=== PATIENT | male | born 1985 ===

== ENCOUNTER 2018-07-18 18:31 | Emergency (ER) | payer OTHER ==
[2018-07-18 18:40] VITALS: TEMP 99; BMI 28.1
--- NOTE | 2018-07-18 19:10 | PDOC ---
History of Present Illness - General Chief Complaint: Blood Pressure Problem Stated Complaint: HEADACHE/DIZZINESS/BP PROBLEM Time Seen by Provider: 07/18/18 19:10 Past History - Past Medical History Allergies/Adverse Reactions: Allergies Allergy/AdvReac Type Severity Reaction Status Date / Time No Known Allergies Allergy Verified 07/18/18 18:40 COPD: No - Suicide/Smoking/Psychosocial Hx Smoking History: Never smoked *Physical Exam - Vital Signs Last Vital Signs Temp Pulse Resp BP Pulse Ox 99.0 F 74 18 162/104 H 99 07/18/18 18:37 07/18/18 18:37 07/18/18 18:37 07/18/18 18:37 07/18/18 18:37 Moderate Sedation - Procedure Monitoring Vital Signs: Procedure Monitoring Vital Signs Temperature 99.0 F 07/18/18 18:37 Pulse Rate 74 07/18/18 18:37 Respiratory Rate 18 07/18/18 18:37 Blood Pressure 162/104 H 07/18/18 18:37 O2 Sat by Pulse Oximetry (%) 99 07/18/18 18:37
[2018-07-18] MEDS ORDERED: NITROGLYCERIN SUBLINGUAL 1/150 0.4 MG TAB SL ONE (19:47)
--- NOTE | 2018-07-18 19:49 | PDOC ---
History of Present Illness - General History Source: Patient Exam Limitations: No Limitations - History of Present Illness Initial Comments: 07/18/18 20:33 The patient is a 33 year old male, with no significant past medical history, who presents to the emergency department with substernal chest pain and associated headache beginning this morning upon waking up. The patient states the substernal chest pain is non radiating, described as a tightness, rated 10/ 10, worse with exertion. The patient states he went to Urgent Care who noted the patients blood pressure was elevated to 160 and sent him to the ED for further evaluation. The patient states he had a similar episode of chest pain and elevated blood pressure (systolic of 170s) 2 weeks ago where he visited his PCP and was told to continue weight loss and diet to help control his blood pressure. The patient denies palpitations, shortness of breath and dizziness. Denies fever, chills, nausea, vomit, diarrhea and constipation. Denies dysuria, frequency, urgency and hematuria. Allergies: NKA <Wesley Ross - Last Filed: 07/18/18 21:45> <Lexy Dumont - Last Filed: 07/18/18 23:32> - General Chief Complaint: Blood Pressure Problem Stated Complaint: HEADACHE/DIZZINESS/BP PROBLEM Time Seen by Provider: 07/18/18 19:10 Past History <Wesley Ross - Last Filed: 07/18/18 21:45> - Past Medical History COPD: No - Suicide/Smoking/Psychosocial Hx Smoking History: Never smoked <Lexy Dumont - Last Filed: 07/18/18 23:32> - Past Medical History Allergies/Adverse Reactions: Allergies Allergy/AdvReac Type Severity Reaction Status Date / Time No Known Allergies Allergy Verified 07/18/18 18:40 Home Medications: Ambulatory Orders Hydrochlorothiazide [Hctz -] 25 mg PO DAILY #30 tablet 07/18/18 Review of Systems - Review of Systems Comments:: 07/18/18 20:33 GENERAL/CONSTITUTIONAL: No fever or chills. No weakness. HEAD, EYES, EARS, NOSE AND THROAT: No change in vision. No ear pain or discharge. No sore throat. CARDIOVASCULAR: (+) Chest pain. No shortness of breath. RESPIRATORY: No cough, wheezing, or hemoptysis. GASTROINTESTINAL: No nausea, vomiting, diarrhea or constipation. GENITOURINARY: No dysuria, frequency, or change in urination. MUSCULOSKELETAL: No joint or muscle swelling or pain. No neck or back pain. SKIN: No rash NEUROLOGIC: (+) Headache. No vertigo, loss of consciousness, or change in strength/sensation. ENDOCRINE: No increased thirst. No abnormal weight change. HEMATOLOGIC/LYMPHATIC: No anemia, easy bleeding, or history of blood clots. ALLERGIC/IMMUNOLOGIC: No hives or skin allergy. <Wesley Ross - Last Filed: 07/18/18 21:45> *Physical Exam - Vital Signs Last Vital Signs Temp Pulse Resp BP Pulse Ox 99.0 F 74 18 162/104 H 99 07/18/18 18:37 07/18/18 18:37 07/18/18 18:37 07/18/18 18:37 07/18/18 18:37 - Physical Exam Comments: 07/18/18 21:45 GENERAL: Awake, alert, and fully oriented, in no acute distress HEAD: No signs of trauma EYES: PERRLA, EOMI, sclera anicteric, conjunctiva clear ENT: Auricles normal inspection, hearing grossly normal, nares patent, oropharynx clear without exudates. Moist mucosa NECK: Normal ROM, supple, no lymphadenopathy, JVD, or masses LUNGS: Breath sounds equal, clear to auscultation bilaterally. No wheezes, and no crackles HEART: Regular rate and rhythm, normal S1 and S2, no murmurs, rubs or gallops ABDOMEN: Soft, nontender, normoactive bowel sounds. No guarding, no rebound. No masses EXTREMITIES: Normal range of motion, no edema. No clubbing or cyanosis. No cords, erythema, or tenderness NEUROLOGICAL: Cranial nerves II through XII grossly intact. Normal speech, normal gait SKIN: Warm, Dry, normal turgor, no rashes or lesions noted. <Wesley Ross - Last Filed: 07/18/18 21:45> - Vital Signs Last Vital Signs Temp Pulse Resp BP Pulse Ox 99.0 F 74 18 162/104 H 99 07/18/18 18:37 07/18/18 18:37 07/18/18 18:37 07/18/18 18:37 07/18/18 18:37 <Lexy Dumont - Last Filed: 07/18/18 23:32> Moderate Sedation - Procedure Monitoring Vital Signs: Procedure Monitoring Vital Signs Temperature 99.0 F 07/18/18 18:37 Pulse Rate 74 07/18/18 18:37 Respiratory Rate 18 07/18/18 18:37 Blood Pressure 162/104 H 07/18/18 18:37 O2 Sat by Pulse Oximetry (%) 99 07/18/18 18:37 <Wesley Ross - Last Filed: 07/18/18 21:45> - Procedure Monitoring Vital Signs: Procedure Monitoring Vital Signs Temperature 99.0 F 07/18/18 18:37 Pulse Rate 74 07/18/18 18:37 Respiratory Rate 18 07/18/18 18:37 Blood Pressure 162/104 H 07/18/18 18:37 O2 Sat by Pulse Oximetry (%) 99 07/18/18 18:37 <Lexy Dumont - Last Filed: 07/18/18 23:32> ED Treatment Course - LABORATORY CBC & Chemistry Diagram: 07/18/18 20:05 07/18/18 20:05 - ADDITIONAL ORDERS Additional order review: 07/18/18 20:05 RBC 5.05 MCV 86.5 MCHC 36.1 H RDW 12.5 MPV 8.1 Neutrophils % 81.0 Lymphocytes % 14.5 Monocytes % 3.6 L Eosinophils % 0.5 Basophils % 0.4 - Medications Given in the ED: ED Medications Discontinued Medications Generic Name Dose Route Start Last Admin Trade Name Freq PRN Reason Stop Dose Admin Nitroglycerin 0.4 mg 07/18/18 19:47 07/18/18 20:00 Nitrostat - SL 07/18/18 19:48 0.4 mg ONCE ONE Administration <Wesley Ross - Last Filed: 07/18/18 21:45> - LABORATORY CBC & Chemistry Diagram: 07/18/18 20:05 07/18/18 20:05 - RADIOLOGY Radiology Studies Ordered: Category Date Time Status CHEST PA & LAT [RAD] Stat Radiology 07/18/18 19:48 Ordered <Lexy Dumont - Last Filed: 07/18/18 23:32> Medical Decision Making - Medical Decision Making 07/18/18 23:29 Pt has essential HTN; his PMD never placed him on HTN meds; I will start him on HCTZ and he will return to PMD. Cardiac enzymes and EKG and exam all normal. 02/16/19 23:31 BP came down appropiriately and he is feeling better. 07/18/18 23:32 Pt refusing CXR at this time. <Lexy Dumont - Last Filed: 07/18/18 23:32> *DC/Admit/Observation/Transfer - Attestations Scribe Attestion: 07/18/18 20:34 Documentation prepared by Wesley Ross, acting as outside medical sales representative for Lexy Dumont MD. <Wesley Ross - Last Filed: 07/18/18 21:45> - Discharge Dispostion Decision to Admit order: No <Lexy Dumont - Last Filed: 07/18/18 23:32> Diagnosis at time of Disposition: Essential (primary) hypertension - Discharge Dispostion Disposition: HOME Condition at time of disposition: Stable - Prescriptions Prescriptions: Hydrochlorothiazide [Hctz -] 25 mg PO DAILY #30 tablet - Referrals Referrals: Tia Alfonso [Primary Care Provider] - - Patient Instructions Printed Discharge Instructions: DI for High Blood Pressure, How to Monitor Your Blood Pressure at Home - Post Discharge Activity
[2018-07-18] MEDS ORDERED: NITROGLYCERIN SUBLINGUAL 1/150 0.4 MG TAB ONE (19:55)
[2018-07-18 20:23] LABS: BASO % 0.4 % (0-2.0); EOS % 0.5 % (0-4.5); HEMATOCRIT 43.7 % (35.4-49); HEMOGLOBIN 15.8 GM/dL (11.7-16.9); LYMPH % 14.5 % (8-40); MCH 31.2 pg (25.7-33.7); MCHC 36.1 g/dl (32.0-35.9); MEAN CELL VOLUME 86.5 fl (80-96); MEAN PLT VOLUME 8.1 fl (7.5-11.1); MONO % 3.6 % (3.8-10.2); PLATELET COUNT 190 K/MM3 (134-434); RBC 5.05 M/mm3 (4.00-5.60); RDW 12.5 % (11.9-15.9)
[2018-07-18] MEDS ORDERED: ACETAMINOPHEN 500 MG TABLET (FP) PO ONE (20:23)
[2018-07-18] MEDS ORDERED: HYDROCHLOROTHIAZIDE 50 MG TABLET PO ONE (20:23)
[2018-07-18] MEDS ORDERED: HYDROCHLOROTHIAZIDE 25 MG TABLET (FP) PO ONE (20:30)
[2018-07-18 20:33] VITALS: BP 138/97; PULSE 83
[2018-07-18 20:34] LABS: INR 1.11 (0.83-1.09); PROTHROMBIN TIME (PATIENT) 13.1 SEC (9.7-13.0)
[2018-07-18] MEDS ORDERED: HYDROCHLOROTHIAZIDE 25 MG TABLET (FP) ONE (20:37)
[2018-07-18] MEDS ORDERED: ACETAMINOPHEN INJECTION 100 ML IVPB ONE (20:37)
[2018-07-18 20:59] LABS: ALBUMIN 4.4 g/dl (3.4-5.0); ALK PHOS 50 U/L (45-117); ANION GAP 7 MMOL/L (8-16); BILIRUBIN,TOTAL 0.5 mg/dL (0.2-1); BLOOD UREA NITROGEN 11 mg/dL (7-18); CALCIUM 8.7 mg/dL (8.5-10.1); CHLORIDE 107 mmol/L (98-107); CO2 26 mmol/L (21-32); CREATININE 0.8 mg/dL (0.55-1.3); GLUCOSE,RANDOM 93 mg/dL (74-106); POTASSIUM 4.2 mmol/L (3.5-5.1); SGOT/AST 31 U/L (15-37); SGPT/ALT 49 U/L (13-61); SODIUM 141 mmol/L (136-145); TOT PROT 7.7 g/dl (6.4-8.2)
--- NOTE | 2018-07-19 12:50 | EKG ---
Test Reason : Blood Pressure : / mmHG Vent. Rate : 090 BPM Atrial Rate : 090 BPM P-R Int : 134 ms QRS Dur : 092 ms QT Int : 368 ms P-R-T Axes : 059 -18 022 degrees QTc Int : 450 ms NORMAL SINUS RHYTHM NONSPECIFIC T WAVE ABNORMALITY NO PREVIOUS ECGS AVAILABLE Confirmed by EMELYN CHAVEZ MD ([id number]) on 07/19/2018 12:49:48 PM Referred By: Confirmed By:EMELYN CHAVEZ MD
== END 2018-07-18 21:58 | disposition home or self-care (01) ==
LOC: JER 18:31
DX: I10 Essential (primary) hypertension (principal)
CPT/HCPCS: 36415; 80053; 82550; 84484; 85025; 85610; 93005; 93010; 99283-25

== ENCOUNTER 2019-01-21 09:10 | Emergency (ER) | payer OTHER ==
[2019-01-21 09:24] VITALS: TEMP 98.2; BMI 28.1
[2019-01-21] MEDS ORDERED: MAG HYDROX/AL HYDROX/SIMETH 30 ML UNIT-DOSE CUP PO ONE (09:54)
[2019-01-21] MEDS ORDERED: FAMOTIDINE 20 MG/50 ML IVPB 20 MG/50 ML MG IVPB ONE ×2 (09:54→10:22)
--- NOTE | 2019-01-21 09:58 | PDOC ---
History of Present Illness <Kim Mo - Last Filed: 01/21/19 10:15> - General History Source: Patient Exam Limitations: No Limitations <Shamika Fraga - Last Filed: 01/22/19 07:10> - General Chief Complaint: Chest Pain Stated Complaint: CHEST PAIN Time Seen by Provider: 01/21/19 09:43 Past History <Kim Mo - Last Filed: 01/21/19 10:15> - Travel Traveled outside of the country in the last 30 days: No Close contact w/someone who was outside of country & ill: No - Past Medical History COPD: No HTN: Yes - Immunization History Immunization Up to Date: Yes - Suicide/Smoking/Psychosocial Hx Smoking History: Never smoked Information on smoking cessation initiated: No Hx Alcohol Use: No Drug/Substance Use Hx: No <Shamika Fraga - Last Filed: 01/22/19 07:10> - Past Medical History Allergies/Adverse Reactions: Allergies Allergy/AdvReac Type Severity Reaction Status Date / Time No Known Allergies Allergy Verified 01/21/19 09:19 Home Medications: Ambulatory Orders Hydrochlorothiazide [Hctz -] 25 mg PO DAILY #30 tablet 07/18/18 Review of Systems - Review of Systems Able to Perform ROS?: Yes Comments:: 01/21/19 09:52 CONSTITUTIONAL: Absent: fever, chills, diaphoresis, generalized weakness, malaise, loss of appetite HEENT: Absent: rhinorrhea, nasal congestion, throat pain, throat swelling, difficulty swallowing, mouth swelling, ear pain, eye pain, visual Changes CARDIOVASCULAR: Present: chest pain Absent: chest pain, loss of consciousness, palpitations, irregular heart rate, peripheral edema RESPIRATORY: Absent: cough, shortness of breath, dyspnea with exertion, orthopnea, wheezing, stridor, hemoptysis GASTROINTESTINAL: Absent: abdominal pain, abdominal distension, nausea, vomiting, diarrhea, constipation, melena, hematochezia GENITOURINARY: Absent: dysuria, frequency, urgency, hesitancy, hematuria, flank pain, genital pain MUSCULOSKELETAL: Absent: myalgia, arthralgia, joint swelling SKIN: Absent: rash, itching, pallor HEMATOLOGIC/IMMUNOLOGIC: Absent: easy bleeding, easy bruising, lymphadenopathy, frequent infections ENDOCRINE: Absent: unexplained weight gain, unexplained weight loss, heat intolerance, cold intolerance NEUROLOGIC: Absent: headache, focal weakness or paresthesias, dizziness, unsteady gait, seizure, mental status changes, bladder or bowel incontinence PSYCHIATRIC: Absent: anxiety, depression, suicidal or homicidal ideation, hallucinations. Is the patient limited Czech proficient: No <Shamika Fraga - Last Filed: 01/22/19 07:10> *Physical Exam - Vital Signs Last Vital Signs Temp Pulse Resp BP Pulse Ox 98.2 F 77 17 163/97 97 01/21/19 09:20 01/21/19 09:20 01/21/19 09:20 01/21/19 09:20 01/21/19 09:20 <Kim Mo - Last Filed: 01/21/19 10:15> - Vital Signs Last Vital Signs Temp Pulse Resp BP Pulse Ox 98.2 F 77 17 163/97 97 01/21/19 09:20 01/21/19 09:20 01/21/19 09:20 01/21/19 09:20 01/21/19 09:20 - Physical Exam Comments: 01/21/19 09:53 GENERAL: Well developed, well nourished. Awake and alert. No acute distress. HEENT: Normocephalic, atraumatic. PERRLA, EOMI. No conjunctival pallor. Sclera are non- icteric. Moist mucous membranes. Oropharynx is clear. NECK: Supple. Full ROM. No JVD. Carotid pulses 2+ and symmetric, without bruits. No thyromegaly. No lymphadenopathy. CARDIOVASCULAR: Regular rate and rhythm. No murmurs, rubs, or gallops. Distal pulses are 2+ and symmetric. PULMONARY: No evidence of respiratory distress. Lungs clear to auscultation bilaterally. No wheezing, rales or rhonchi. ABDOMINAL: Soft. Non-tender. Non-distended. No rebound or guarding. No organomegaly. Normoactive bowel sounds. MUSCULOSKELETAL Normal range of motion at all joints. No bony deformities or tenderness. No CVA tenderness. EXTREMITIES: No cyanosis. No clubbing. No edema. No calf tenderness. SKIN: Warm and dry. Normal capillary refill. No rashes. No jaundice. NEUROLOGICAL: Alert, awake, appropriate. Cranial nerves 2-12 intact. No deficits to light touch and temperature in face, upper extremities and lower extremities. No motor deficits in the in face, upper extremities and lower extremities. Normoreflexic in the upper and lower extremities. Normal speech. Toes are down- going bilaterally. Gait is normal without ataxia. PSYCHIATRIC: Cooperative. Good eye contact. Appropriate mood and affect. <Shamika Fraga - Last Filed: 01/22/19 07:10> Heart Score/ECG Review - History History: Slightly suspicious - Electrocardiogram EKG: Normal - Age Age: </= 43 - Risk Factors Risk Factors Heart Score: Yes Hx Hypertension Based on the list above the patient has:: 1-2 risk factors - Troponin Troponin: </= normal limit - Score Heart Score - Total: 1 <Shamika Fraga - Last Filed: 01/22/19 07:10> ED Treatment Course - LABORATORY CBC & Chemistry Diagram: 01/21/19 10:39 01/21/19 10:39 <Shamika Fraga - Last Filed: 01/22/19 07:10> Medical Decision Making - Medical Decision Making 01/21/19 10:15 The patient was seen and evaluated in conjunction with midlevel provider under my direct supervision, ancillary studies were reviewed. I agree with the plan as outlined ALLI Fraga. HPI, workup/dispo as outlined. VS reviewed, wnl. EKG reviewed, NSR, no ischemic findings. no elevations or depressions of ST segments anticipate discharge, pcp followup, return precautions <ChelyKimiris Haasrickie - Last Filed: 01/21/19 10:15> - Medical Decision Making 01/21/19 09:55 The patient is a 33-year-old male with past medical history of hypertension, not on medication at this time, presents to the ER with 2 days of intermittent chest pain. He states that the pain started Friday night and then awoke from sleep. He states that the pain was initially on the left side of his chest that is since moved to the middle of his chest. He states that the pain comes and goes and it feels sharp. He notes that the pain is worse after eating. He states that he feels like he has trouble catching his breath due to the pain. He has not tried any any medication for symptoms. He says primary care doctor for this issue and had a normal EKG. Denies fevers, chills, trauma, recent illness, nausea, vomiting, palpitations, edema shortness of breath on exertion. A/P: Chest pain On exam lungs are clear to auscultation bilaterally, heart with regular rate and rhythm, S1 and S2 present Abdomen is soft and nontender with no rebound guarding or tenderness. EKG obtained from triage shows a normal sinus rhythm with a rate of 77 bpm. Normal intervals and axis. No acute ST-T wave changes. Differential diagnosis includes but is not limited to acute coronary syndrome, atypical chest pains, GERD, pneumonia, MSK issue Basic labs including troponin, chest x-ray ordered GI cocktail in case it is reflux Reevaluate 01/21/19 14:06 Labs unremarkable Pt states that the medication mildly helped. Trops neg x2 CXR clear Heart score [address] Chinchilla (pt PCP). Given Heart score of 1 with negative trops and negative out patient stress test, can discharge home at this time. Dr. Chinchilla requesting nitroglcerin at dc; however, this does not appear to be typical angina. Risk and benefits of starting the medication discussed with the patient. He states that he will take tylenol and follow up with his doctor about starting nitroglcerin. Pt to f/u with Dr. Chinchilla for cardiac catheterization DC home with strict return precautions I discussed the physical exam findings, ancillary test results and final diagnoses with the patient. I answered all of the patient's questions. The patient was satisfied with the care received and felt comfortable with the discharge plan and treatment plan. The Patient agrees to follow up with the primary care physician/specialist within 24-72 hours. Return precautions were given. <Shamika Fraga - Last Filed: 01/22/19 07:10> *DC/Admit/Observation/Transfer <ChelyKim Cunningham - Last Filed: 01/21/19 10:15> - Discharge Dispostion Decision to Admit order: No <Shamika Fraga - Last Filed: 01/22/19 07:10> Diagnosis at time of Disposition: Atypical chest pain - Discharge Dispostion Disposition: HOME Condition at time of disposition: Stable - Referrals Referrals: Ariel Chinchilla MD [Primary Care Provider] - - Patient Instructions Printed Discharge Instructions: DI for Atypical Chest Pain Additional Instructions: You were evaluated for your chest pain today Your blood work, EKG, and chest x-ray are normal Please follow up with Dr. Chinchilla tomorrow. His office should be calling you to set up a cardiac catheterization Take Tylenol 650mg every 6 hours as needed for pain Return to the ER for worsening chest pain, difficulty breathing or if you have any changes in your symptoms - Post Discharge Activity Forms/Work/School Notes: Back to Work
[2019-01-21] MEDS ORDERED: MAG HYDROX/AL HYDROX/SIMETH 30 ML UNIT-DOSE CUP ONE (10:22)
[2019-01-21 10:53] LABS: BASO % 0.2 % (0-2.0); EOS % 0.2 % (0-4.5); HEMATOCRIT 44.2 % (35.4-49); HEMOGLOBIN 15.4 GM/dL (11.7-16.9); LYMPH % 18.5 % (8-40); MCH 30.1 pg (25.7-33.7); MCHC 34.9 g/dl (32.0-35.9); MEAN CELL VOLUME 86.5 fl (80-96); MEAN PLT VOLUME 8.1 fl (7.5-11.1); MONO % 4.3 % (3.8-10.2); NEUT % 76.8 % (42.8-82.8); PLATELET COUNT 193 K/MM3 (134-434); RBC 5.11 M/mm3 (4.00-5.60); RDW 12.4 % (11.9-15.9)
[2019-01-21 11:04] LABS: INR 1.16 (0.83-1.09); PROTHROMBIN TIME (PATIENT) 13.7 SEC (9.7-13.0)
[2019-01-21 11:29] LABS: ALBUMIN 4.4 g/dl (3.4-5.0); BILIRUBIN,TOTAL 0.8 mg/dL (0.2-1); CALCIUM 9.2 mg/dL (8.5-10.1); MAGNESIUM 2.4 mg/dL (1.8-2.4); POTASSIUM 4.1 mmol/L (3.5-5.1); TOT PROT 7.5 g/dl (6.4-8.2)
[2019-01-21 11:49] LABS: BLOOD UREA NITROGEN 15.4 mg/dL (7-18)
[2019-01-21 15:52] VITALS: BP 153/93; PULSE 63
--- NOTE | 2019-01-21 16:59 | EKG ---
Test Reason : Blood Pressure : / mmHG Vent. Rate : 077 BPM Atrial Rate : 077 BPM P-R Int : 130 ms QRS Dur : 100 ms QT Int : 384 ms P-R-T Axes : 045 -03 033 degrees QTc Int : 434 ms NORMAL SINUS RHYTHM NORMAL ECG WHEN COMPARED WITH ECG OF 18-JUL-2018 20:06, NO SIGNIFICANT CHANGE WAS FOUND Confirmed by SHARLA COOPER MD ([id number]) on 01/21/2019 4:59:05 PM Referred By: Confirmed By:SHARLA COOPER MD
== END 2019-01-21 16:00 | disposition home or self-care (01) ==
LOC: JER 09:10
PROC: 3E033GC Introduction of Other Therapeutic Substance into Peripheral Vein, Percutaneous Approach (ICD-10-PCS; principal; 2019-01-21)
DX: R07.89 Other chest pain (principal); I10 Essential (primary) hypertension
CPT/HCPCS: 36415; 71046-TC-FY; 80053; 82550; 83735; 84484; 85025; 85610; 93005; 93010; 99283-25